=== PATIENT | female | born 2000 | race Caucasian/White ===

== ENCOUNTER 2018-06-03 01:36 | Emergency (ER) | payer MEDICAID ==
[~2018-06-03] VITALS: Ht 160 cm; Wt 106.8 kg
[2018-06-03 01:54] VITALS: Ht 160 cm; Wt 106.8 kg
[2018-06-03 02:16] LABS: APPEARANCE CLEAR (CLEAR); BILIRUBIN NEGATIVE (NEGATIVE); COLOR YELLOW (YELLOW); GLUCOSE NEGATIVE (NEGATIVE); KETONE LARGE mg/dL (NEGATIVE); NITRITE NEGATIVE (NEGATIVE); PROTEIN NEGATIVE (NEGATIVE); SPECIFIC GRAVITY 1.005 (1.005-1.020)
[2018-06-03 02:54] LABS: BASOPHILS 0.2 % (0-2); EOSINOPHILS 0.1 % (0-7); HEMATOCRIT 36.3 % (36.0-48.0); HEMOGLOBIN 12.8 g/dL (12-16); IMMATURE GRANULOCYTES 0.2 % (0-5); LYMPHOCYTES 25.4 % (15-50); MCHC 35.3 g/dL (31.0-37.0); MCV 79.4 fL (80.0-100.0); MEAN PLATELET VOLUME 8.9 fL (7.4-10.4); MONOCYTES 16.4 % (2-11); NEUTROPHILS 57.7 % (40-80); PLATELET COUNT 224 10x3/uL (130-400); RBC 4.57 10x6/uL (4.00-5.40); RDW 13.2 % (11.5-14.5); WBC 8.5 10x3/uL (4.8-10.8)
[2018-06-03 03:05] LABS: ALBUMIN 3.2 g/dL (3.4-5.0); ALKALINE PHOSPHATASE 82 U/L (46-116); ALT (SGPT) 50 U/L (10-68); BILIRUBIN - TOTAL 0.62 mg/dL (0.2-1.3); CALC OSMOLALITY 272 mosm/kg (275-300); CARBON DIOXIDE 25.3 mmol/L (21.0-32.0); CHLORIDE - SERUM 101 mmol/L (98-107); CREATININE - SERUM 0.6 mg/dL (0.6-1.3); GLUCOSE 98 mg/dL (74-106); POTASSIUM - SERUM 3.3 mmol/L (3.5-5.1); PROTEIN - SERUM 7.8 g/dL (6.4-8.2); SODIUM 138 mmol/L (136-145); UREA NITROGEN 3 mg/dL (7-18); eGFR NON AFRICAN AMERICAN > 90 mL/min (90-120)
[2018-06-03 03:28] LABS: HCG - QUANTITATIVE (MATERNAL) 156009 mIU/mL
[2018-06-03] MEDS ORDERED: PHENERGAN25 M1 PO (03:50)
[2018-06-03 03:58] VITALS: BP 112/80
== END 2018-06-03 03:58 | disposition home or self-care (01) ==
LOC: D.ER 01:36
PROVIDERS: Family Medicine
DX: O26.891 Other specified pregnancy related conditions, first trimester (principal); Z3A.10 10 weeks gestation of pregnancy; J09.X2 Influenza due to identified novel influenza A virus with other respiratory manifestations; E87.6 Hypokalemia; R05 Cough; R09.89 Other specified symptoms and signs involving the circulatory and respiratory systems; R50.9 Fever, unspecified; R10.9 Unspecified abdominal pain; R11.2 Nausea with vomiting, unspecified; F17.200 Nicotine dependence, unspecified, uncomplicated

== ENCOUNTER → 2018-09-26 13:48 | Outpatient (CLI) | payer MEDICAID ==
[2018-06-03 01:54] VITALS: BMI 41.7
[~2018-09-26 13:48] MED LIST: PHENERGAN25 M1 PO
== END | disposition home or self-care (01) ==
LOC: D.LDO 13:48
PROVIDERS: ATTEND Obstetrics & Gynecology
DX: O26.892 Other specified pregnancy related conditions, second trimester (principal); Z3A.25 25 weeks gestation of pregnancy

== ENCOUNTER 2018-11-16 19:04 | Emergency (ER) | payer MEDICAID ==
[~2018-11-16] VITALS: Ht 160 cm; Wt 100.0 kg
[2018-11-16 19:22] VITALS: Ht 160 cm; Wt 100.0 kg
[2018-11-16] MEDS ORDERED: CLEOCIN HCL300 MG PO (21:32)
[2018-11-16 21:49] VITALS: BP 122/74
== END 2018-11-16 21:49 | disposition home or self-care (01) ==
LOC: D.ER 19:04
DX: O26.893 Other specified pregnancy related conditions, third trimester (principal); Z3A.32 32 weeks gestation of pregnancy; L73.2 Hidradenitis suppurativa; O99.331 Smoking (tobacco) complicating pregnancy, first trimester

== ENCOUNTER 2018-12-06 22:47 | Outpatient (CLI) | payer MEDICAID ==
[2018-11-16 19:22] VITALS: BMI 39.0
[~2018-12-06 22:47] MED LIST changes: +CLEOCIN HCL300 MG PO
[2018-12-07 01:01] LABS: APPEARANCE HAZY (CLEAR); BILIRUBIN NEGATIVE (NEGATIVE); COLOR YELLOW (YELLOW); GLUCOSE NEGATIVE (NEGATIVE); KETONE NEGATIVE (NEGATIVE); NITRITE NEGATIVE (NEGATIVE); PROTEIN NEGATIVE (NEGATIVE); SPECIFIC GRAVITY 1.015 (1.005-1.020); UROBILINOGEN NORMAL (NORMAL)
[2018-12-07 01:02] LABS: BACTERIA MANY /hpf (NONE SEEN); EPITHELIAL CELLS 0-5 /hpf (0-5); RED CELLS - URINE NONE SEEN /hpf (0-5)
[2018-12-29 19:23] VITALS: BMI 44.2
== END 2018-12-07 01:38 | disposition home or self-care (01) ==
LOC: D.LDO 22:47 → D.LD 23:50 → D.LDO 12-07 01:38
PROVIDERS: ATTEND Obstetrics & Gynecology
DX: O26.893 Other specified pregnancy related conditions, third trimester (principal); Z3A.35 35 weeks gestation of pregnancy

== ENCOUNTER → 2018-12-15 12:25 | Outpatient (CLI) | payer MEDICAID ==
[2018-11-16 19:22] VITALS: BMI 39.0
[~2018-12-15 12:25] MED LIST changes: +IBUPROFEN800 MG PO; +PERCOCET 7.5/321 TAB PO
[2018-12-15 13:08] LABS: BASOPHILS 0.1 % (0-2); HEMATOCRIT 30.2 % (36.0-48.0); HEMOGLOBIN 10.5 g/dL (12-16); IMMATURE GRANULOCYTES 0.2 % (0-5); LYMPHOCYTES 29.1 % (15-50); MCH 27.5 pg (26.0-34.0); MCHC 34.8 g/dL (31.0-37.0); MCV 79.1 fL (80.0-100.0); MEAN PLATELET VOLUME 9.7 fL (7.4-10.4); MONOCYTES 9.9 % (2-11); NEUTROPHILS 59.7 % (40-80); PLATELET COUNT 219 10x3/uL (130-400); RBC 3.82 10x6/uL (4.00-5.40); RDW 13.8 % (11.5-14.5); WBC 11.3 10x3/uL (4.8-10.8)
[2018-12-15 13:29] LABS: ALBUMIN 2.1 g/dL (3.4-5.0); ALKALINE PHOSPHATASE 193 U/L (46-116); ALT (SGPT) 10 U/L (10-68); BILIRUBIN - INDIRECT 0.18 mg/dL (0.00-1.00); BILIRUBIN - TOTAL 0.28 mg/dL (0.2-1.3); CALC OSMOLALITY 275 mosm/kg (275-300); CARBON DIOXIDE 25.7 mmol/L (21.0-32.0); CHLORIDE - SERUM 106 mmol/L (98-107); CREATININE - SERUM 0.6 mg/dL (0.6-1.3); GLUCOSE 93 mg/dL (74-106); POTASSIUM - SERUM 3.7 mmol/L (3.5-5.1); PROTEIN - SERUM 5.8 g/dL (6.4-8.2); SODIUM 140 mmol/L (136-145); UREA NITROGEN 3 mg/dL (7-18); URIC ACID 5.4 mg/dL (2.6-7.2); eGFR NON AFRICAN AMERICAN > 90 mL/min (90-120)
[2018-12-29 19:23] VITALS: BMI 44.2
== END | disposition home or self-care (01) ==
LOC: D.LDO 12:25
PROVIDERS: ATTEND Student in an Organized Health Care Education/Training Program
DX: O26.893 Other specified pregnancy related conditions, third trimester (principal); Z3A.37 37 weeks gestation of pregnancy

== ENCOUNTER → 2018-12-22 10:13 | Outpatient (CLI) | payer MEDICAID ==
[2018-11-16 19:22] VITALS: BMI 39.0
[~2018-12-22 10:13] MED LIST changes: -IBUPROFEN800 MG PO; -PERCOCET 7.5/321 TAB PO
== END | disposition home or self-care (01) ==
LOC: D.LDO 10:13
PROVIDERS: ATTEND Student in an Organized Health Care Education/Training Program
DX: O36.8130 Decreased fetal movements, third trimester, not applicable or unspecified (principal); Z3A.38 38 weeks gestation of pregnancy

== ENCOUNTER 2018-12-25 22:39 | Outpatient (CLI) | payer MEDICAID ==
[2018-11-16 19:22] VITALS: BMI 39.0
[2018-12-29 19:23] VITALS: BMI 44.2
== END 2018-12-25 23:25 ==
LOC: D.LD 22:39 → D.LDO 22:39
PROVIDERS: ATTEND Obstetrics & Gynecology
DX: O26.893 Other specified pregnancy related conditions, third trimester (principal); Z3A.38 38 weeks gestation of pregnancy; R10.9 Unspecified abdominal pain

== ENCOUNTER 2018-12-29 11:28 | Inpatient (IN) | payer MEDICAID ==
[~2018-12-29] VITALS: Ht 160 cm; Wt 112.9 kg
[2018-12-29 15:50] LABS: HEMATOCRIT 33.3 % (36.0-48.0); HEMOGLOBIN 11.7 g/dL (12-16); MCH 27.7 pg (26.0-34.0); MCHC 35.1 g/dL (31.0-37.0); MCV 78.9 fL (80.0-100.0); RBC 4.22 10x6/uL (4.00-5.40); RDW 13.9 % (11.5-14.5); WBC 12.4 10x3/uL (4.8-10.8)
[2018-12-29 19:23] VITALS: BP 123/92; Ht 160 cm; Wt 112.9 kg
--- NOTE | 2018-12-29 20:21 | NUR ---
DR LAKE CALLED PRIOR TO GOING INTO OR. ORDERS WERE RECEIVED FOR SHABNAM FOR THIS PT.
[2018-12-30 07:12] LABS: RAPID PLASMA REAGIN Non Reactive (Non Reactive)
[2018-12-30 09:32] LABS: BASOPHILS 0.1 % (0-2); EOSINOPHILS 0.8 % (0-7); HEMATOCRIT 31.5 % (36.0-48.0); HEMOGLOBIN 10.9 g/dL (12-16); IMMATURE GRANULOCYTES 0.2 % (0-5); MCH 27.5 pg (26.0-34.0); MCHC 34.6 g/dL (31.0-37.0); MCV 79.5 fL (80.0-100.0); MEAN PLATELET VOLUME 9.8 fL (7.4-10.4); MONOCYTES 9.3 % (2-11); NEUTROPHILS 60.6 % (40-80); PLATELET COUNT 195 10x3/uL (130-400); RBC 3.96 10x6/uL (4.00-5.40); RDW 13.9 % (11.5-14.5); WBC 12.8 10x3/uL (4.8-10.8)
[2018-12-30 09:46] LABS: ALBUMIN 2.1 g/dL (3.4-5.0); ALKALINE PHOSPHATASE 222 U/L (46-116); ALT (SGPT) 11 U/L (10-68); BILIRUBIN - INDIRECT 0.28 mg/dL (0.00-1.00); BILIRUBIN - TOTAL 0.38 mg/dL (0.2-1.3); CALC OSMOLALITY 279 mosm/kg (275-300); CALCIUM 8.1 mg/dL (8.5-10.1); CARBON DIOXIDE 24.2 mmol/L (21.0-32.0); CHLORIDE - SERUM 109 mmol/L (98-107); CREATININE - SERUM 0.6 mg/dL (0.6-1.3); GLUCOSE 75 mg/dL (74-106); POTASSIUM - SERUM 3.5 mmol/L (3.5-5.1); SODIUM 142 mmol/L (136-145); UREA NITROGEN 6 mg/dL (7-18); URIC ACID 5.5 mg/dL (2.6-7.2); eGFR NON AFRICAN AMERICAN > 90 mL/min (90-120)
--- NOTE | 2018-12-30 20:54 | NUR ---
PT AMBULATORY OFF UNIT AT THIS TIME W/SIG OTHER.
[2018-12-30 21:00] VITALS: BP 137/75
--- NOTE | 2018-12-30 21:00 | NUR ---
THIS RN TO BEDSIDE FOR SHIFT ASSESSMENT. PT CURENNTLY SITTING UP IN BED WATCHING TV. CONTINUE POC DISCUSSED W/PT. PT VERBALZIES UNDERSTANDING AND AGREEEABLE. SEE FLOW SHEET FOR ASSESSMENT. PT REPORTS SHE IS HAVING CTX'S AND REPORTS THEM 6/10. NO PAIN INTERVENTIONS REQUESTED AT THIS TIME. PT REPORTS IT FEELS BETTER WHEN SHE IS SITTING UP, LEGS APART. PT REQUEST SOMETHING SWEET TO EAT. 2 CUPS OF ICE CREAM SERVED AND 2 BLANKETS PER PT REQUEST.
--- NOTE | 2019-01-01 02:39 | NUR ---
PT STATES "YES" WHEN ASKED IF SHE HAS PAIN. STATES "i DON'T KNOW" TO A QUESTION REGARDING PAIN NUMBER OR "IS YOUR PAIN SMALL, MEDIUM, OR LARGE?"
--- NOTE | 2019-01-01 02:55 | NUR ---
PT REC'D FROM RECOVERY AT THIS TIME. IV SITE PATENT FUNDUS FIRM AND AT U1 WITH MODERATE LOCHIA NOTED. SCDS ON AND FUNCTIONAL. DRESSIG TO ABDOMEN CDI. LUNGS WITH OCCASIONAL WHEEZES AT THIS TIME. INCENTIVE SPIROMETRY PERFORMED WITH PATIENT AT THIS TIME. HYPOACTIVE BS NOTED. NO ACUTE DISTRESS NOTED AT THIS TIME. PERICARE PROVIDED. Santi HOSKINS RN
[2019-01-01 02:58] VITALS: BP 155/80
--- NOTE | 2019-01-01 05:15 | NUR ---
BAG OF PITOCIN RESTARTED AT THIS TIME. PT RESTING COMFORTABLY AT THIS TIME. Santi POLK RN
[2019-01-01 05:42] VITALS: BP 134/65
--- NOTE | 2019-01-01 05:42 | NUR ---
VITAL SIGNS STABLE THIS AM. LUDIVINA PROVIDED THIS AM. Santi POLK RN
[2019-01-01 07:33] VITALS: BP 135/80
--- NOTE | 2019-01-01 07:37 | NUR ---
RECEIVED PT SITTING UP IN BED. WAKES UPON ENTERING ROOM. VSS. HRRR WITHOUT AUDIBLE MURMUR. BBS CLEAR. BS X 4. ABDOMEN SOFT/NON-DISTENDED. FUNDUS FIRM AT U/U. RUBRA LOCHIA SMALL AMT. NO CLOTS NOTED. PERIPAD CHANGED. ABDOMINAL DRESSING DRY WITHOUT DRAINAGE NOTED. NEG HOMANS' SIGN. PPP. MILD NON-PITTING EDEMA NOTED TO BLE. PIV OF NS WITH PITOCIN INFUSING AT 125 ML/HR TO RIGHT HAND. SITE CLEAR. PT STATES PAIN OF "5" ON 0-10 PAIN SCALE. TORADOL 30 MG GIVEN SIVP OVER 2 MINUTES. PT INSTRUCTED ON MED. VERBALIZES UNDERSTANDING. SITE CLEAR. BERG TO GRAVITY DRAINING JAROD COLORED URINE. PT ENCOURAGED TO CONSUME WATER/FLUIDS. PT VERBALIZES UNDERSTANDING. SR UP X2. CALL LIGHT IN REACH.
--- NOTE | 2019-01-01 08:12 | NUR ---
SO AT DESK. STATES PT HAS QUESTIONS ABOUT BURPING BABY. THIS NURSE TO ROOM. PT INSTRUCTED ON BURPING . PT DEMONSTRATES UNDERSTANDING.
--- NOTE | 2019-01-01 09:28 | NUR ---
PT C/O INCISIONAL PAIN OF "4" ON 0-10 PAIN SCALE. TORADOL 30 MG GIVEN SIVP OVER 2 MINUTES. PT INSTRUCTED ON MED. VERBALIZES UNDERSTANDING.
--- NOTE | 2019-01-01 09:35 | NUR ---
PT REQUESTS AND RECEIVES SPRITE AND CUPS OF WATER X 2. FRESH ICE PACK TO INCISION.
--- NOTE | 2019-01-01 11:00 | NUR ---
PT SITTING UP IN BED. VISITS WITH FAMILY. DENIES C/O PAIN OR NEEDS.
--- NOTE | 2019-01-01 13:00 | NUR ---
PT SITTING UP IN BED. VISITS WITH FAMILY. HOLDS INFANT WITH MUCH WARMTH SHOWN. DENIES C/O OR NEEDS.
[2019-01-01 14:24] VITALS: BP 144/86
--- NOTE | 2019-01-01 14:27 | NUR ---
PT SITTING UP IN BED. VISITS WITH FAMILY. VSS. PT DENIES PAIN OR NEEDS.
--- NOTE | 2019-01-01 16:23 | NUR ---
TORADOL 30 MG GIVEN SIVP OVER 2 MINUTES. PT INSTRUCTED ON MED. VERBALIZES UNDERSTANDING.
--- NOTE | 2019-01-01 16:50 | NUR ---
DR BERMUDEZ CALLED IN OR #1 TO REQUEST ORDER THAT PT MAY TAKEN 1 FIORICET FOR C/O HEADACHE. GIVES T/O THAT PT MAY TAKE 1 TAB W/SIP OF WATER.
--- NOTE | 2019-01-01 17:15 | NUR ---
PIV CONVERTED TO SALINE LOCK.
--- NOTE | 2019-01-01 17:57 | NUR ---
BERG DC'D WITH 800 ML OF JAROD COLORED URINE NOTED. PT OOB AND AMB TO BR. UNABLE TO VOID AT THIS TIME. PERICARE DONE AT THIS TIME. PERIPAD CHANGED. GOWN CHANGED. PT AMBULATE BACK TO BED. SITS UP ON SIDE OF BED.
--- NOTE | 2019-01-01 19:35 | NUR ---
PM ROUNDS MADE, PT UP IN BR AT THIS TIME, INFORMED PT THAT I WILL BE MOVING HER TO [facility], PT VERBALIZES UNDERSTANDING, DENIES NEEDS AT THIS TIME, FOB AND BEST FRIEND IN ROOM
[2019-01-01 20:25] VITALS: BP 118/64
--- NOTE | 2019-01-01 20:25 | NUR ---
PT TRANSFERRED VIA AMB WITH ALL BELONGINGS TO ROOM 1221, FOB AT SIDE, PT TRANSFERS SELF TO BED, ASSESSMENT PER FLOW SHEET, VS OBTAINED, SALINE LOCK IN RIGHT HAND INTACT WITH NO REDNESS OR EDEMA, FF, ML, U/1, PT REPORTS LITE BLEEDING WITH NO CLOTS, PT REPORTS FLATUS, NO BM, AND VOIDED WITH NO DIFFICULTY, PT STATES "OH, I DIDN'T KNOW I WAS SUPPOSE TO PEE IN THAT CONTAINER, I JUST TOOK IT OFF OF THE TOILET", INFORMED PT THAT I WILL PLACE ONE NOW AND THAT SHE NEEDED TO USE IT AT LEAST 2 TIMES, PT VERBALIZES UNDERSTANDING, PT STATES "I DID PEE A LOT OVER THERE", PT RATES INC PAIN 5/10, DENIES NEED FOR PAIN MED AT THIS TIME, PT ORIENTED TO ROOM, BED IN LOW POSITION, SIDE RAILS X 2, CALL LIGHT IN REACH, INFANT IN OPEN CRIB CART AT BEDSIDE
--- NOTE | 2019-01-01 21:38 | NUR ---
PT HOLDING INFANT, SALINE LOCK RE-TAPED, DENIES FURTHER NEEDS AT THIS TIME
--- NOTE | 2019-01-01 22:35 | NUR ---
INFANT TO [facility] VIA ABISAI VEGA RN
--- NOTE | 2019-01-01 22:40 | NUR ---
PT AMB IN [place], GAIT STEADY, FOB AT SIDE
--- NOTE | 2019-01-01 22:55 | NUR ---
PT BACK ON UNIT, REPORTS GOING TO [employer], I ASKED PT IF SHE NEEDED ANY PAIN MED AT THIS TIME, PT REQUESTS TORADOL IF DUE, INFORMED PT THAT IT WAS, INFORMED PT THAT I WILL BRING IT IN WHEN SHE GETS SETTLED INTO BED AND THAT I WILL OBTAIN VS ALSO, PT TO ROOM
[2019-01-01 23:02] VITALS: BP 120/74
--- NOTE | 2019-01-01 23:02 | NUR ---
PT IN BED, VS OBTAINED, ADM TORADOL PO PER MD ORDERS, SEE EMAR, PT REFUSES SCD'S AT THIS TIME, STATES "I PLAN ON SITTING UP HER SHORTLY", PT INFORMED THAT SCD'S WILL BE PLACED WHEN GOING TO SLEEP, PT VERBALIZES UNDERSTANDING, DENIES FURTHER NEEDS, INFANT IN OPEN CRIB CART AND FOB AT BEDSIDE
[2019-01-02] VITALS (7 sets, daily range): BP systolic 118–157; BP diastolic 57–88
--- NOTE | 2019-01-02 00:17 | NUR ---
PT RESTING WITH EYES CLOSED, RESP QUIET, NO DISTRESS NOTED, LEFT UNDISTURBED AT THIS TIME, IN OPEN CRIB CART AND FOB ASLEEP AT BEDSIDE
--- NOTE | 2019-01-02 00:39 | NUR ---
SHIFT REPORT TO RITESH DESHPANDE RN
--- NOTE | 2019-01-02 01:50 | NUR ---
PT. SITTING ON SIDE OF BED FEEDING . TALKING WITH NURSE ABOUT DELIVERY AND STATES THAT SHE FEELS THAT SHE IS DOING WELL AFTER HER . FOB SLEEPING IN CHAIR BESIDE BED. PT. STATES THAT SHE PLANS TO TAKE BACK TO NBN AFTER FEEDING. THIS NURSE OFFERED TO TAKE FOR PT. BUT SHE STATES THAT SHE NEEDS TO WALK SOME. ENCOURAGED PT TO CALL THIS NURSE WITH ANY ASSISTANCE SHE MIGHT NEED. PT. STATES UNDERSTANDING.
--- NOTE | 2019-01-02 02:20 | NUR ---
INFANT HAS FINISHED EATING AND PT. HOLDING. INFORMED PT. THAT NBN NURSE IS ATTENDING ANOTHER DELIVERY SO WILL NOT BE ABLE TO TAKE TO NBN AT THIS TIME. PT. STATES "THAT IS FINE". STATES SHE JUST VOIDED AGAIN.L 900+CC NOTED IN AND RUNNING OVER [place] HAT. ASKED PT. IF THAT VOLUME WAS ONE VOID OR TWO. STATES IT WAS JUST ONE. ENCOURAGED PT. TO EMPTY BLADDER MORE OFTEN BEFORE IT GETS THAT FULL AGAIN. EXPLAINED THAT A DISTENDED BLADDER WILL CAUSE MORE PRESSURE ON THE ABD. INCISION. PT. STATES "THAT IS PROBABLY WHY I WAS HURTING MORE". PT. STATES UNDERSTANDING ABOUT EMPTYING MORE OFTEN.
--- NOTE | 2019-01-02 03:40 | NUR ---
LEMON WAMPANOAG DRINK TAKEN TO PT PER HER REQUEST. IN OPEN CRIB AT BEDSIDE SLEEPING.
--- NOTE | 2019-01-02 04:01 | NUR ---
PT. AWAKE AND LYING IN RT TILT IN BED. INFANT REMAINS IN OPEN CRIB AT BEDSIDE. VITAL SIGNS OBTAINED. PT. DENIES ANY PAIN AT THIS TIME.
--- NOTE | 2019-01-02 05:49 | NUR ---
PT. LYING ON RT. SIDE WITH EYES CLOSED. RESPIRATIONS UNLABORED. INFANT IN NBN AT PRESENT. FOB LYING ON OPENED CHAIR AT BEDSIDE.
[2019-01-02 07:08] LABS: BASOPHILS 0.1 % (0-2); EOSINOPHILS 0.9 % (0-7); HEMATOCRIT 28.3 % (36.0-48.0); HEMOGLOBIN 9.6 g/dL (12-16); IMMATURE GRANULOCYTES 0.5 % (0-5); LYMPHOCYTES 26.6 % (15-50); MCH 27.4 pg (26.0-34.0); MCHC 33.9 g/dL (31.0-37.0); MCV 80.6 fL (80.0-100.0); NEUTROPHILS 59.9 % (40-80); PLATELET COUNT 170 10x3/uL (130-400); RBC 3.51 10x6/uL (4.00-5.40); RDW 14.3 % (11.5-14.5); WBC 11.1 10x3/uL (4.8-10.8)
--- NOTE | 2019-01-02 07:56 | NUR ---
awake and alert. verbal responses appro to questions. up and about at will. states she is passing gas. denies pain at this time.
--- NOTE | 2019-01-02 08:31 | NUR ---
AMBULATING IN [place] WITH FAMILY.
--- NOTE | 2019-01-02 09:12 | NUR ---
IV SALINE LOCK REMOVED WITH CATH TIP INTACT. BANDAIDE APPLIED. UP TO SHOWER-TOLERATED WELL. ABD DRESSING REMOVED- SVETLANA INTACT - INCISION WITHOUT REDNESS, DRAINAGE APPEARANCE WNL.
--- NOTE | 2019-01-02 09:35 | NUR ---
LAB HERE FOR BLOOD DRAW- PT AWAKENED. PT ASKING WHEN MD WILL BE HERE.
--- NOTE | 2019-01-02 10:50 | NUR ---
DENIES PAIN EXCEPT "WHEN LAUGHING" UP AND ABOUT IN ROOM DESIRED. SITTING UP IN BED HOLDING INFANT AT THIS TIME.
--- NOTE | 2019-01-02 12:15 | NUR ---
DR MEDEIROS HERE TO SEE PT- NO NEW ORDERS.
--- NOTE | 2019-01-02 12:45 | NUR ---
PT REQUESTS THAT SHE GET DEPO SHOT AT SAME TIME MMR. PT INFORMED THAT NO ORDER FOR DEPO SHOT AT THIS TIME AND WILL ASK DR MEDEIROS AT NEXT ROUNDS.
--- NOTE | 2019-01-02 14:23 | NUR ---
bp rechecked- 157/88. ask if in pain states on occasion when laughs or is moving about. rates pain a 4 on scale of 0-10. refuses percocet or other pain med that might "make me sleepy" agrees to take toradol- toradol being given. pt talking with visitors.
--- NOTE | 2019-01-02 14:43 | NUR ---
report of vs to dr weber- he states he will put in order for procardia shortly.
--- NOTE | 2019-01-02 16:08 | NUR ---
sitting on the side of bed. talking with visitor. soda given per request. vs done.
--- NOTE | 2019-01-02 17:45 | NUR ---
RECEIVED SHIFT REPORT FROM LUIZ CEJA RN
--- NOTE | 2019-01-02 18:00 | NUR ---
ASSESSMENT PER FLOW SHEET, VS OBTAINED, FF, ML, U/1, PT REPORTS SCANT VAG BLEEDING WITH NO CLOTS, BIKINI INC WITH STAPELS CDI WITH DOMINICK PAD OVER INC FOR COMFORT AND MOISTURE CONTROL, PT INST ON AND VERBALIZES UNDERSTANDING OF INCISIONAL CARE, PT REPORTS USING I.S. INST, +FLATUS, NO BM AND VOIDING WITH NO DIFFICULTY, PT DENIES NEEDS OR PAIN AT THIS TIME, INFANT IN OPEN CRIB CART AT BEDSIDE
--- NOTE | 2019-01-02 19:18 | NUR ---
PT HOLDING INFANT, TALKING ON PHONE, DENIES NEEDS OR PAIN AT THIS TIME
--- NOTE | 2019-01-02 20:19 | NUR ---
PT AMB TO [facility], GAIT STEADY, REQUESTED AND PROVIDED DOMINICK PADS AND PANTIES, DENIES FURTHER NEEDS OR PAIN AT THIS TIME, PT BACK TO ROOM
--- NOTE | 2019-01-02 21:34 | NUR ---
PT LAYING IN BED, FOB ALSO LAYING IN BED WITH PT, PT REQUESTED AND SERVED SANDWICH TRAY AND LEMON [place] SODA, DENIES FURTHER NEEDS OR PAIN AT THIS TIME, INFANT IN OPEN CRIB CART AT BEDSIDE
--- NOTE | 2019-01-02 22:31 | NUR ---
PT AMB TO [employer], REQUESTED SNACK AND JUICE, PT SHOWN [facility], PT OBTAINS SNACK, THEN BACK TO ROOM
--- NOTE | 2019-01-02 23:17 | NUR ---
PT SITTING ON SIDE OF BED, LAYING ON PILLOW BESIDE PT, VS OBTAINED, ADM TORADOL PER MD ORDERS, PT STATES "I'M TRYING TO FIGURE OUT THE EASIEST WAY TO GET OUT OF BED", PT DENIES FURTHER NEEDS, FOB ASLEEP AT BEDSIDE
--- NOTE | 2019-01-03 00:15 | NUR ---
PT LAYING IN BED, LOOKING AT CELL PHONE, DENIES NEEDS OR PAIN AT THIS TIME, IN OPEN CRIB CART AND FOB ASLEEP AT BEDSIDE
--- NOTE | 2019-01-03 01:25 | NUR ---
INFANT TO NSY VIA OPEN CRIB CART PER THIS RN
--- NOTE | 2019-01-03 02:03 | NUR ---
PT RESTING WITH EYES CLOSED, RESP QUIET, NO DISTRESS NOTED, LEFT UNDISTURBED AT THIS TIME, FOB ASLEEP AT BEDSIDE
--- NOTE | 2019-01-03 03:37 | NUR ---
INFANT TO ROOM VIA OPEN CRIB CART PER NSY NURSE
[2019-01-03 04:05] VITALS: BP 144/83
--- NOTE | 2019-01-03 04:05 | NUR ---
PT AWAKE, SITTING ON THE SIDE OF THE BED, VS OBTAINED, RATES PAIN /, REFUSES PAIN PILL AT THIS TIME, REQUESTS TORADOL WHEN DUE, INFORMED PT THAT I WILL BRING IT IN AROUND 5:15AM, PT VERBALIZES UNDERSTANDING, REQUESTED AND SERVED LEMON KLAMATH, DENIES FURTHER NEEDS, INFANT IN OPEN CRIB CART AND FOB ASLEEP AT BEDSIDE
--- NOTE | 2019-01-03 05:07 | NUR ---
PT JUST FINISHED FEEDING , ADM TORADOL PER MD ORDERS, SEE EMAR, PT DENIES FURTHER NEEDS, FOB ASLEEP AT BEDSIDE
--- NOTE | 2019-01-03 06:14 | NUR ---
PT RESTING WITH EYES CLOSED, RESP QUIET, NO DISTRESS NOTED, LEFT UNDISTURBED AT THIS TIME, IN OPEN CRIB CART AND FOB ASLEEP AT BEDSIDE
--- NOTE | 2019-01-03 07:30 | NUR ---
TO PT ROOM FOR AM ASSESSMENT, PT SLEEPING WITH INFANT IN CRIB NEXT TO BED. FOB AT BEDSIDE. WILL RETURN FOR ASSESSMENT.
--- NOTE | 2019-01-03 07:30 | NUR ---
DIETARY SERVES REGULAR BREAKFAST TRAY.
[2019-01-03 07:40] VITALS: BP 127/89
--- NOTE | 2019-01-03 07:40 | NUR ---
to room for am assessment. pt is sitting up in the bed, pt denies heavy bleeding or passing clots. abdomen palpates soft, incision c/d/i, with melonie intact, no redness or drainage noted. pt has clean peripad over incision for comfort and to help keep incision dry. pt denies all other needs. srup x2, call light and phone within reach.
--- NOTE | 2019-01-03 08:10 | NUR ---
pt ambulatory in [facility], to [facility]. denies all needs.
--- NOTE | 2019-01-03 09:10 | NUR ---
rounding completed by this RN. pt in sitting up on side of bed with family at bedside. pt denies pain and all other needs at this time. srupx2, call light and phone within reach.
--- NOTE | 2019-01-03 10:11 | NUR ---
rounding completed by this RN. See emar for social media coordinator. Pt sitting up in bed with infant in crib sleeping. FOB in room. pt denies pain and all other needs at this time. srup x2, call light and phone within reach.
--- NOTE | 2019-01-03 13:00 | NUR ---
dr. weber on unit, rounds made. speaking with pt regarding discharge plan, and adm of depo provera before discharge. will discharge pt home to follow up in clinic on tuesday01/08/19 for staple removal.
[2019-01-03] MEDS ORDERED: IBUPROFEN800 MG PO (14:09)
--- NOTE | 2019-01-03 14:09 | NUR ---
SEE EMAR FOR PARK WARDEN BY THIS RN. PT SITTING UP IN CHAIR, IN CRIB, FOB AT BEDSIDE. PT DENIES PAIN AND ALL OTHER NEEDS AT THIS TIME. SRUPX2, CALL LIGHT AND PHONE WITHIN REACH.
[2019-01-03] MEDS ORDERED: PERCOCET 7.5/321 TAB PO (14:10)
--- NOTE | 2019-01-03 14:10 | NUR ---
pt asking whether or not she should start back on her lexapro, twice daily, pt states she can not remember the dosage. phone call made to dr. weber by samir maradiaga rn as md did not answer telephone, message left with hugo at [facility]. dr. weber then calls to unit and states he will call in a prescription for pt. pt informed.
--- NOTE | 2019-01-03 14:15 | NUR ---
discharge instructions explained to pt with copies provided. pt denies questions.
--- NOTE | 2019-01-03 14:27 | NUR ---
pt off unit in stable condition ambulatory, as pt has refused wheelchair, with infant in carseat, with sig other carrying .
--- NOTE | 2019-01-05 09:56 | OP ---
PATIENT NAME: TOBIAS FLOOD MEDICAL RECORD: [id number] :98 LOCATION:BLU D.1221 ADMISSION DATE:12/29/18 SURGEON: SONU MEDEIROS MD DATE OF OPERATION: 01/01/2019 PREOPERATIVE DIAGNOSES: 1. PIH. 2. Oligohydramnios. 3. Arrest of descent. 4. at 39 weeks. POSTOPERATIVE DIAGNOSES: 1. PIH. 2. Oligohydramnios. 3. Arrest of descent. 4. at 39 weeks. PROCEDURE: Primary low transverse section. SURGEON: Sonu Medeiros MD PATIENT SERVICE COORDINATOR: Nima Devine. ANESTHESIA: Continuous lumbar epidural. FINDINGS: Viable male infant, vertex presentation, Apgars 9 and 9, weight 3466 grams. Vertex is noted to be asynclitic. Unremarkable uterus, tubes, and ovaries bilaterally. SPECIMEN REMOVED: Placenta. SPECIMEN DISPOSITION: Discarded. ESTIMATED BLOOD LOSS: 800 cc. FLUIDS: 1700 cc lactated Ringer's. URINE OUTPUT: 500 of clear urine. COMPLICATIONS: None. DRAIN: Castillo to gravity. INDICATIONS: The patient is a 18-year-old female, G1, para 0, undergoing induction of labor for oligohydramnios and later discovered to have -induced hypertension. The patient went into active labor during the second stage arrested in descent. The patient was consented for a primary low transverse section and any indicated procedure. DESCRIPTION OF PROCEDURE: After informed consent was assured, the patient was taken to the operating room where anesthetic was assessed and found to be adequate. The patient being prepped and draped, and has a low transverse incision made on the abdomen, carried down to the underlying layer of the fascia, which was opened in the midline and extended laterally. Fascia was now dissected free of the rectus bellies which were now in the midline. OPERATIVE REPORT [id number] TOBIAS FLOOD The peritoneum was entered sharply and the peritoneal opening extended. An Gurjit ring retractor was inserted and tightened. The DeLee all-purpose retractor inserted and low transverse hysterotomy was performed after developing the bladder flap. Infant was delivered onto the abdomen atraumatically. Cord was doubly clamped and cut and the infant was passed to the attendant. The placenta was then delivered via Crede maneuver. Uterus was exteriorized, cleared of all clot and debris and then returned to the abdomen for the clots. The uterine hysterotomy was closed with a running locked stitch of chromic. After closing of the hysterotomy, the pelvis was irrigated and irrigant removed. The initial sponge count and amount is correct. The rectus bellies were inspected and found to be hemostatic. Using a looped PDS, the fascia was closed. Subcutaneous tissue was irrigated. Bleeding vessels cauterized and the subcutaneous tissue reapproximated with plain gut stitch. The skin is now reapproximated with melonie. Sterile dressing was applied. Sponge, lap, and needle counts correct times 2, the final count. TRANSINT:[id number] Voice Confirmation ID: [id number] DOCUMENT ID: [id number] SONU MEDEIROS MD at 0956 CC: [id number] DICTATION DATE: 01/03/19 1336 STAGE RIGGER: 01/03/19 214 DIS IN 01/03/19 [facility] [address] [place] [address]
== END 2019-01-03 14:30 | disposition home or self-care (01) | DRG 787 ==
LOC: D.LDO 11:28 → D.LD 14:35 → D.WS 01-01 20:25
PROVIDERS: Student in an Organized Health Care Education/Training Program; ADMIT Obstetrics & Gynecology; ATTEND Obstetrics & Gynecology
PROC: 3E033VJ Introduction of Other Hormone into Peripheral Vein, Percutaneous Approach (ICD-10-PCS; 2018-12-30)
PROC: 3E0P7VZ Introduction of Hormone into Female Reproductive, Via Natural or Artificial Opening (ICD-10-PCS; 2018-12-30)
PROC: 10D00Z1 Extraction of Products of Conception, Low, Open Approach (ICD-10-PCS; principal; 2019-01-01 00:51)
DX: O13.4 Gestational [pregnancy-induced] hypertension without significant proteinuria, complicating childbirth (principal); O41.03X0 Oligohydramnios, third trimester, not applicable or unspecified; Z3A.39 39 weeks gestation of pregnancy; Z37.0 Single live birth; O62.1 Secondary uterine inertia; O99.824 Streptococcus B carrier state complicating childbirth; N91.5 Oligomenorrhea, unspecified

== ENCOUNTER 2019-07-08 15:37 | Emergency (ER) | payer MEDICAID ==
[~2019-07-08] VITALS: Ht 160 cm; Wt 113.6 kg
[~2019-07-08 15:37] MED LIST changes: +IBUPROFEN800 MG PO; +PERCOCET 7.5/321 TAB PO
[2019-07-08 16:25] VITALS: Ht 160 cm; Wt 113.6 kg
[2019-07-08 17:13] LABS: BASOPHILS 0.4 % (0-2); EOSINOPHILS 0.6 % (0-7); HEMATOCRIT 41.8 % (36.0-48.0); HEMOGLOBIN 13.6 g/dL (12-16); IMMATURE GRANULOCYTES 0.6 % (0-5); MCH 25.9 pg (26.0-34.0); MCHC 32.5 g/dL (31.0-37.0); MCV 79.5 fL (80.0-100.0); MEAN PLATELET VOLUME 9.8 fL (7.4-10.4); MONOCYTES 10.2 % (2-11); NEUTROPHILS 50.2 % (40-80); PLATELET COUNT 177 10x3/uL (130-400); RBC 5.26 10x6/uL (4.00-5.40); RDW 14.6 % (11.5-14.5); WBC 5.1 10x3/uL (4.8-10.8)
[2019-07-08 17:27] LABS: CALC OSMOLALITY 277 mosm/kg (275-300); CALCIUM 8.7 mg/dL (8.5-10.1); CARBON DIOXIDE 26.4 mmol/L (21.0-32.0); CHLORIDE - SERUM 103 mmol/L (98-107); CREATININE - SERUM 0.9 mg/dL (0.6-1.3); POTASSIUM - SERUM 3.6 mmol/L (3.5-5.1); SODIUM 139 mmol/L (136-145); UREA NITROGEN 5 mg/dL (7-18); eGFR NON AFRICAN AMERICAN 84 mL/min (90-120)
[2019-07-08 17:30] LABS: GLUCOSE 161 mg/dL (74-106)
[2019-07-08 17:45] LABS: ALBUMIN 3.3 g/dL (3.4-5.0); ALKALINE PHOSPHATASE 97 U/L (30-120); ALT (SGPT) 58 U/L (10-68); BILIRUBIN - TOTAL 0.63 mg/dL (0.2-1.3); C-REACTIVE PROTEIN 9.3 mg/dL (0.0-0.9); CREATINE KINASE 89 UL (21-215); FERRITIN 97 ng/mL (3-244); PROTEIN - SERUM 7.7 g/dL (6.4-8.2); TROPONIN-I < 0.017 ng/mL (0.000-0.060)
[2019-07-08] MEDS ORDERED: ZOFRAN4 MG PO (18:53)
[2019-07-08 19:30] VITALS: BP 132/87
== END 2019-07-08 19:30 | disposition home or self-care (01) ==
LOC: D.ER 15:37
PROVIDERS: Family Medicine
DX: R51 Headache (principal); R05 Cough; M79.10 Myalgia, unspecified site